=== PATIENT | female | born 1935 | race Two or more races ===

== ENCOUNTER 2020-01-06 21:50 | Emergency (ER) | payer OTHER ==
[~2020-01-06] VITALS: Ht 154.9 cm; Wt 58.5 kg
[~2020-01-06 21:50] MED LIST: ATARAX25 MG PO; BACTROBAN OINT22 GM TP; CIPRO500 MG PO; CLEOCIN HCL300 MG PO; DICYCLOMINE HCL10 MG PO; LOPERAMIDE2 M1 PO; OMEPRAZOLE20 MG PO; PEPCID20 MG PO; PRILOSEC20 MG PO; SEPTRA DS TABLE1 TAB PO; ULTRAM50 MG PO
== END 2020-01-06 22:51 | disposition home or self-care (01) ==
LOC: ER 21:50
DX: S01.82XA Laceration with foreign body of other part of head, initial encounter (principal); W18.09XA Striking against other object with subsequent fall, initial encounter; Y93.89 Activity, other specified; Y92.098 Other place in other non-institutional residence as the place of occurrence of the external cause; Y99.8 Other external cause status; I10 Essential (primary) hypertension

== ENCOUNTER 2025-10-06 21:21 | Emergency (ER) | payer OTHER ==
[~2025-10-06] VITALS: Ht 149.9 cm; Wt 43.5 kg
[2025-10-07] MEDS ORDERED: DEXAMETHASONE SODIUM PHOSPHATE 4 MG/ML VIAL IM STA (01:22)
[2025-10-07] MEDS ORDERED: ORPHENADRINE CITRATE 30 MG/ML AMPUL IM STA (01:24)
[2025-10-07] MEDS ORDERED: PANTOPRAZOLE SODIUM 40 MG/VIAL VIAL IV STA (01:25)
[2025-10-07] MEDS ORDERED: DEXAMETHASONE SODIUM PHOSPHATE 4 MG/ML VIAL ONE (01:37)
[2025-10-07] MEDS ORDERED: ORPHENADRINE CITRATE 30 MG/ML AMPUL ONE (01:37)
[2025-10-07 02:36] LABS: BASO % 0.4 % (0.1-1.2); EOS # 1.13 (0.04-0.54); LYMPH # 2.42 (1.18-3.74); LYMPH % 33.7 % (19.3-53.1); MEAN PLATELET VOLUME 9.70 fl (9.4-12.4); MONO # 0.80 (0.24-0.82); MONO % 11.1 % (4.7-12.5); NEUT # 2.80 (1.56-6.13); NEUT % 39.0 % (34.0-71.1); RED CELL DISTRIBUTION WIDTH 13.7 % (11.6-14.4)
[2025-10-07 02:48] LABS: ALT/SGPT 21.0 U/L (12-78); AST/SGOT 15.0 U/L (15-37); BILIRUBIN TOTAL 0.4 mg/dL (0.3-1.2); BUN CREA RATIO 31.0 (7.0-25.0); CREATININE SERUM 0.55 mg/dL (0.55-1.02); GFR 104.31; GLOBULINA 4.1 G/DL (2.4-3.5); GLUCOSE FASTING 109.0 mg/dL (65-100); OSMOLALITY SERUM 282.0 MOSM/KG (275-295)
[2025-10-07 02:58] LABS: EOS % 15.7 % (0.7-7.0)
[2025-10-07 03:28] LABS: URINE APPEARANCE Clear; URINE BILIRRUBIN Negative (NEGATIVE); URINE BLOOD Negative; URINE COLOR Yellow; URINE GLUCOSE Negative (NEGATIVE); URINE KETONE Negative (NEGATIVE); URINE LEUKOCYTE Negative; URINE NITRATE Negative; URINE PROTEIN Negative (NEGATIVE); URINE UROBILINOGEN 0.2 E.U./dl
[2025-10-07 03:32] LABS: URINE BACTERIA 327.1 uL (0.0-1933); URINE EPITHELIAL CELLS 7.9 uL (0.0-38.8); URINE WBC 2.9 uL (0.0-23.2)
[2025-10-07 03:34] LABS: URINE CAST 0.14 uL (0.0-1.40); URINE RBC 1.4 uL (0.0-20.8)
[2025-10-07 03:37] LABS: COVID-19 AG NEGATIVE (NEGATIVE)
== END 2025-10-07 04:26 | disposition home or self-care (01) ==
LOC: ER 21:21
PROVIDERS: General Practice
DX: R51.9 Headache, unspecified (principal); Z88.0 Allergy status to penicillin; Z88.6 Allergy status to analgesic agent; F32.89 Other specified depressive episodes; F41.8 Other specified anxiety disorders; N81.10 Cystocele, unspecified; M54.2 Cervicalgia; I10 Essential (primary) hypertension; M81.8 Other osteoporosis without current pathological fracture; E11.9 Type 2 diabetes mellitus without complications; Z20.822 Contact with and (suspected) exposure to COVID-19

== ENCOUNTER 2025-10-11 13:44 | Emergency (ER) | payer OTHER ==
[~2025-10-11] VITALS: Ht 152.4 cm; Wt 45.4 kg
[2025-10-11] MEDS ORDERED: COZAAR25 MG PO (15:58)
[2025-10-11] MEDS ORDERED: METFORMIN HCL500 M3 (15:58)
[2025-10-11] MEDS ORDERED: ECOTRIN81 MG (15:59)
[2025-10-11] MEDS ORDERED: [UNRECOGNIZED DRUG - OTHER] PO (15:59)
[2025-10-11] MEDS ORDERED: ACETAMINOPHEN 500 MG GEL..CAP PO ONE ×2 (16:15→16:18)
[2025-10-11] MEDS ORDERED: ORPHENADRINE CITRATE 30 MG/ML AMPUL IM ONE (16:15)
[2025-10-11] MEDS ORDERED: DEXAMETHASONE SODIUM PHOSPHATE 4 MG/ML VIAL IM ONE (16:15)
[2025-10-11] MEDS ORDERED: ORPHENADRINE CITRATE 30 MG/ML AMPUL ONE (16:18)
[2025-10-11] MEDS ORDERED: DEXAMETHASONE SODIUM PHOSPHATE 4 MG/ML VIAL ONE (16:19)
[2025-10-11 16:59] LABS: BASO % 0.3 % (0.1-1.2); EOS # 1.18 (0.04-0.54); LYMPH # 2.07 (1.18-3.74); LYMPH % 31.7 % (19.3-53.1); MEAN PLATELET VOLUME 9.20 fl (9.4-12.4); MONO # 0.70 (0.24-0.82); MONO % 10.7 % (4.7-12.5); NEUT # 2.55 (1.56-6.13); NEUT % 39.0 % (34.0-71.1); RED CELL DISTRIBUTION WIDTH 13.5 % (11.6-14.4)
[2025-10-11 17:01] LABS: EOS % 18.1 % (0.7-7.0)
[2025-10-11 17:27] LABS: INR 1.01
[2025-10-11 17:31] LABS: ALT/SGPT 24.0 U/L (12-78); AST/SGOT 17.0 U/L (15-37); BILIRUBIN TOTAL 0.3 mg/dL (0.3-1.2); BUN CREA RATIO 39.0 (7.0-25.0); CREATININE SERUM 0.62 mg/dL (0.55-1.02); GFR 90.84; GLOBULINA 3.6 G/DL (2.4-3.5); GLUCOSE FASTING 104.0 mg/dL (65-100); OSMOLALITY SERUM 286.0 MOSM/KG (275-295)
[2025-10-11] MEDS ORDERED: 8HR ARTHRITIS650 M1 PO (18:58)
[2025-10-11] MEDS ORDERED: NORFLEX100MG PO (18:58)
[2025-10-11] MEDS ORDERED: PEPCID AC20 MG PO (18:58)
== END 2025-10-11 22:25 | disposition home or self-care (01) ==
LOC: ER 13:45
PROVIDERS: General Practice
DX: S09.8XXA Other specified injuries of head, initial encounter (principal); W18.39XA Other fall on same level, initial encounter; Y93.89 Activity, other specified; Y92.89 Other specified places as the place of occurrence of the external cause; Z88.0 Allergy status to penicillin; Z91.041 Radiographic dye allergy status
CPT/HCPCS: 36415; 70450; 70490; 93005; 96372; 99284; J1100; J2360